=== PATIENT | female | born 1955 | race Caucasian/White ===

== ENCOUNTER 2018-11-29 12:11 | Outpatient (CLI) | payer OTHER ==
--- NOTE | 2018-11-29 13:12 | MMO ---
Bilateral MAMMO Bilat Screen [facility]. CLINICAL HISTORY: Patient is 63 years old and is seen for screening. The patient has a history of right Cyst Aspiration in 2001 - benign and bilateral Breast reduction in 2001. VIEWS: The views performed were: bilateral craniocaudal with tomosynthesis; bilateral mediolateral oblique with tomosynthesis; and right exaggerated craniocaudal. MAMMOGRAM FINDINGS: There are scattered fibroglandular densities. Benign calcifications are noted bilaterally. There are no suspicious masses, suspicious calcifications, or new areas of architectural distortion. IMPRESSION: THERE IS NO MAMMOGRAPHIC EVIDENCE OF MALIGNANCY. A ROUTINE FOLLOW-UP MAMMOGRAM IN 1 YEAR IS RECOMMENDED. THE RESULTS OF THIS EXAM WERE SENT TO THE PATIENT. ACR BI-RADS Category 2 - Benign finding MAMMOGRAPHY NOTE: 1. A negative mammogram report should not delay a biopsy if a dominant of clinically suspicious mass is present. 2. Approximately 10% to 15% of breast cancers are not detected by mammography. 3. Adenosis and dense breasts may obscure an underlying neoplasm. Reported by: Emiliano CARNEY Electonically Signed: [id number]
== END 2018-11-29 12:12 | disposition home or self-care (01) ==
LOC: BICMAMMO 12:11
PROVIDERS: ATTEND Obstetrics & Gynecology
DX: Z12.31 Encounter for screening mammogram for malignant neoplasm of breast (principal)
CPT/HCPCS: 77063; 77067

== ENCOUNTER 2018-12-10 06:59 | Day surgery (SDC) | payer OTHER ==
[2018-12-09 11:08] VITALS: BMI 19.3
--- NOTE | 2018-12-10 09:15 | HP ---
HISTORY OF PRESENT ILLNESS: This is a 63-year-old female, comes in for a colonoscopy for colon cancer. The patient has no specific symptoms. There is no family history of any colon cancer. ALLERGIES: QUINOLONE. SOCIAL HISTORY: She is a former smoker PHYSICAL EXAMINATION: Pulse is 72 IMPRESSION/PLAN: The patient is a 63-year-old female who comes in for a colonoscopy for colon cancer. Job ID: [id number]
[2018-12-10] MEDS ORDERED: Phenylephrine HCL 10 MG/ML VIAL ONE (10:01)
[2018-12-10] MEDS ORDERED: Sodium Chloride 0.9% 10 ML ONE (10:01)
--- NOTE | 2018-12-10 11:29 | OP ---
DATE OF PROCEDURE: 12/10/2018 PREOPERATIVE DIAGNOSIS: A 63-year-old female, undergoing colonoscopy for colon cancer screening. POSTOPERATIVE DIAGNOSES: 1. Sigmoid diverticular disease. 2. Hypertrophied anal papilla, small hemorrhoids. 3. Redundant colon. PROCEDURE PERFORMED: Video colonoscopy with biopsy. DESCRIPTION OF PROCEDURE: The patient was placed on her left lateral position and was given sedation by Anesthesia Department. A rectal exam was done before the scope was advanced to the rectum. No lesions felt on rectal exam. A [employer]ax video colonoscope was introduced into the rectum and advanced all the way into the cecum. In the appendicular opening, ileocecal valve, and cecum, no pathology seen. The scope advanced into terminal ileum. The ileal mucosa appeared normal. Withdrawal of scope from the cecum to ascending colon, hepatic flexure, no pathology seen. In the transverse colon, splenic flexure, descending colon, no pathology seen. The sigmoid colon shows scattered diverticula. Over the lower colon area . This is very nonspecific. Biopsies obtained from this area. Retroflexion of scope in the rectum showed hypertrophied anal papilla, small hemorrhoids. DISCHARGE PLANNING: This is a 63-year-old female, came for colonoscopy for colon cancer screening. The colonoscopy showed sigmoid diverticular disease and also mild inflammatory changes of the sigmoid colon. DISCHARGE RECOMMENDATIONS: 1. High-fiber diet. 2. The patient advised to call me if she develops abdominal pain, hematochezia. 3. In the absence of any of the above symptoms, she will come back to me in 2 weeks. 4. Repeat colonoscopy in 10 years as she has average risk for colon cancer. Job ID: [id number]
== END 2018-12-10 10:45 | disposition home or self-care (01) ==
LOC: SDC 06:59
PROVIDERS: ATTEND Internal Medicine Gastroenterology
PROC: 0DBN8ZX Excision of Sigmoid Colon, Via Natural or Artificial Opening Endoscopic, Diagnostic (ICD-10-PCS; principal; 2018-12-10)
DX: Z12.11 Encounter for screening for malignant neoplasm of colon (principal); K57.30 Diverticulosis of large intestine without perforation or abscess without bleeding; K64.9 Unspecified hemorrhoids; K62.89 Other specified diseases of anus and rectum; Z87.891 Personal history of nicotine dependence; Z88.1 Allergy status to other antibiotic agents
CPT/HCPCS: 88305; J2370

== ENCOUNTER 2019-12-29 09:48 | Outpatient (CLI) | payer OTHER ==
--- NOTE | 2019-12-29 10:32 | BD ---
EXAM: DEXA bone density examination HISTORY: 64-year-old postmenopausal female for screening COMPARISON: None FINDINGS: L1--bone mineral density 0.837 g/sq cm; T score -1.4 L2--bone mineral density 0.807 g/sq cm; T score -2.0 L3--bone mineral density 1.091 g/sq cm; T score 0.1 L4--bone mineral density 1.075 g/sq cm; T score 0.1 Total L1-L4--bone mineral density 0.956 g/sq cm; T score -0.8 Left femoral neck--bone mineral density0.627; T score -2.0 Total proximal left femur--bone mineral density 0.817; T score -1.0 WHO classification: Osteopenia 10 year fracture risk Major osteoporotic fracture: 19% Hip fracture: 1.4% IMPRESSION: Osteopenia with fracture risk as above.
--- NOTE | 2019-12-29 11:45 | MMO ---
Bilateral MAMMO Bilat Screen [facility]. CLINICAL HISTORY: Patient is 64 years old and is seen for screening. The patient has no family history of breast cancer. The patient has no personal history of cancer. The patient has a history of right Cyst Aspiration in 2000 - benign and bilateral Breast reduction in 2000. VIEWS: The views performed were: bilateral craniocaudal with tomosynthesis; bilateral mediolateral oblique with tomosynthesis; and right exaggerated craniocaudal. FILMS COMPARED: The present examination has been compared to a prior imaging study performed at [facility] on 11/29/2018. This study has been interpreted with the assistance of computer-aided detection. MAMMOGRAM FINDINGS: There are scattered fibroglandular densities. Finding 1: There are stable benign appearing calcifications seen in both breasts. Finding 2: There are stable benign appearing densities seen in both breasts. There are no suspicious masses, suspicious calcifications, or new areas of architectural distortion. IMPRESSION: THERE IS NO MAMMOGRAPHIC EVIDENCE OF MALIGNANCY. A ROUTINE FOLLOW-UP MAMMOGRAM IN 1 YEAR IS RECOMMENDED. THE RESULTS OF THIS EXAM WERE SENT TO THE PATIENT. ACR BI-RADS Category 2 - Benign finding MAMMOGRAPHY NOTE: 1. A negative mammogram report should not delay a biopsy if a dominant of clinically suspicious mass is present. 2. Approximately 10% to 15% of breast cancers are not detected by mammography. 3. Adenosis and dense breasts may obscure an underlying neoplasm. Reported by: MYRNA GONZALEZ MD Electonically Signed: [id number]
== END 2019-12-29 09:49 | disposition home or self-care (01) ==
LOC: BICMAMMO 09:48
PROVIDERS: ATTEND Family Medicine
DX: Z12.31 Encounter for screening mammogram for malignant neoplasm of breast (principal); M85.852 Other specified disorders of bone density and structure, left thigh
CPT/HCPCS: 77063; 77067; 77080

== ENCOUNTER 2025-04-16 14:19 | Inpatient (IN) | payer BC ==
[2025-04-16] MEDS ORDERED: Ondansetron PF 4 MG/2 ML Vial ONE (14:40)
[2025-04-16] MEDS ORDERED: Lidocaine 1% w/Epinephrine 1:100K 20 ML VIAL ONE (14:40)
[2025-04-16] MEDS ORDERED: Bacitracin 1 PK ONE (14:56)
[2025-04-16] MEDS ORDERED: Ketamine In 0.9 % NaCl 50 MG/5 ML SYRINGE ONE ×2 (14:56→16:38)
[2025-04-16 16:22] LABS: #Basophils 0.04 10x3/uL (0.0-0.2); #Eosinophils 0.12 10x3/uL (0.0-0.7); #Monocytes 1.03 10x3/uL (0.11-0.59); #Neutrophils 2.81 10x3/uL (1.40-6.50); %Basophils 0.4 % (0.0-1.0); %Eosinophils 1.3 % (0.0-10.0); %Lymphocytes 54.9 % (21.0-51.0); %Monocytes 11.6 % (0.0-10.0); %Neutrophils 31.6 % (42.0-75.0); Hematocrit 39.9 % (36.0-47.0); Hemoglobin 12.6 g/dL (12.0-16.0); Mean Corpuscular Hemoglobin 28.6 pg (27.0-31.0); Mean Corpuscular Volume 90.7 fL (78.0-98.0); Platelet Count 262 10x3/uL (130-400); Red Blood Cell (RBC) Count 4.40 mill/uL (4.20-5.40); White Blood Cell (WBC) Count 8.91 10x3/uL (4.8-10.8)
[2025-04-16 16:38] LABS: ALT (SGPT) 21 U/L (Less than 34); AST (SGOT) 29 U/L (11-34); Albumin 4.2 g/dL (3.1-4.5); Alkaline Phosphatase 42 U/L (40-110); Anion Gap 15 mmol/L (10-20); BUN (Urea Nitrogen) 23 mg/dL (9.8-20.1); Bilirubin, Total 0.4 mg/dL (0.3-1.2); Calc. Creatinine Clearance 0 mL/min (70-130); Calcium 9.4 mg/dL (7.8-10.44); Carbon Dioxide 23 mmol/L (23-31); Chloride 106 mmol/L (98-107); Globulin 2.8 g/dL (2.4-3.5); Glucose 101 mg/dL (80-115); Potassium 4.0 mmol/L (3.5-5.1); Sodium 140 mmol/L (136-145)
[2025-04-16] MEDS ORDERED: Dextrose 50% Abboject 50 ML SYRINGE SLOW IVP PRN (19:37)
[2025-04-16] MEDS ORDERED: hydrALAZINE 20 MG/ML VIAL SLOW IVP PRN (19:37)
[2025-04-16] MEDS ORDERED: Ondansetron PF 4 MG/2 ML Vial IVP PRN (19:37)
[2025-04-16] MEDS ORDERED: Methocarbamol 500 MG TAB PO PRN (19:37)
[2025-04-16] MEDS ORDERED: Glucagon 1 MG/ML KIT IM PRN (19:37)
[2025-04-16 22:31] VITALS: BMI 26.9
[2025-04-17] MEDS: Senokot S 8.6-50 MG TAB PO SCH (00:27)
[2025-04-17 07:32] LABS: #Basophils Less than 0.03 10x3/uL (0.0-0.2); #Eosinophils 0.06 10x3/uL (0.0-0.7); #Monocytes 1.10 10x3/uL (0.11-0.59); #Neutrophils 4.64 10x3/uL (1.40-6.50); %Basophils 0.3 % (0.0-1.0); %Eosinophils 0.8 % (0.0-10.0); %Lymphocytes 25.8 % (21.0-51.0); %Monocytes 14.0 % (0.0-10.0); %Neutrophils 59.0 % (42.0-75.0); Hematocrit 36.7 % (36.0-47.0); Hemoglobin 11.6 g/dL (12.0-16.0); Mean Corpuscular Hemoglobin 28.9 pg (27.0-31.0); Mean Corpuscular Volume 91.3 fL (78.0-98.0); Platelet Count 221 10x3/uL (130-400); Red Blood Cell (RBC) Count 4.02 mill/uL (4.20-5.40); White Blood Cell (WBC) Count 7.86 10x3/uL (4.8-10.8)
[2025-04-17 07:46] LABS: Anion Gap 6 mmol/L (10-20); BUN (Urea Nitrogen) 20 mg/dL (9.8-20.1); Calc. Creatinine Clearance 105 mL/min (70-130); Calcium 8.0 mg/dL (7.8-10.44); Carbon Dioxide 22 mmol/L (23-31); Chloride 109 mmol/L (98-107); Glucose 95 mg/dL (80-115); Potassium 3.9 mmol/L (3.5-5.1); Sodium 133 mmol/L (136-145)
[2025-04-17] MEDS: Acetaminophen 325 MG TAB PO PRN (09:00)
[2025-04-17] MEDS ORDERED: fentaNYL PF 100 MCG/2 ML SYRINGE ONE (10:05)
[2025-04-17] MEDS ORDERED: Ondansetron PF 4 MG/2 ML Vial ONE (10:05)
[2025-04-17] MEDS ORDERED: Lidocaine 1% PF 5 ML VIAL ONE (10:05)
[2025-04-17] MEDS: PNEUMOC 20-VAL CONJ-DIP CRM/PF 0.5 ML SYRINGE IM ONE (10:51)
[2025-04-17] MEDS ORDERED: Ropivacaine 0.5% HCl/PF (150 MG/30 ML VIAL) ONE (11:17)
[2025-04-17] MEDS ORDERED: Lidocaine 2% 6 ML (Jelly) SYR ONE (11:36)
[2025-04-17] MEDS ORDERED: PROPOFOL 200 MG/20 ML VIAL ONE (12:00)
[2025-04-17] MEDS ORDERED: Rocuronium Bromide 10 MG/ML (10ML VIAL) ONE (12:00)
[2025-04-17] MEDS ORDERED: PHENYLEPHRINE-NS 100 MCG/ML 10 ML SYRINGE ONE (12:00)
[2025-04-17] MEDS ORDERED: SUGAMMADEX SODIUM 200 MG/2 ML VIAL ONE (12:13)
[2025-04-17 18:46] VITALS: TEMP 98.1
[2025-04-17 19:54] VITALS: BP 103/69
[2025-04-18] MEDS ORDERED: PNEUMOC 20-VAL CONJ-DIP CRM/PF 0.5 ML SYRINGE IM ONE (09:00)
== END 2025-04-17 19:55 | disposition home or self-care (01) | DRG 511 ==
LOC: ERS 14:19 → SURG B 19:47
PROVIDERS: ADMIT Colon & Rectal Surgery; ATTEND Colon & Rectal Surgery
PROC: 0PSJ04Z Reposition Left Radius with Internal Fixation Device, Open Approach (ICD-10-PCS; principal; 2025-04-17)
DX: S52.502A Unspecified fracture of the lower end of left radius, initial encounter for closed fracture (principal); S02.122A Fracture of orbital roof, left side, initial encounter for closed fracture; S02.92XA Unspecified fracture of facial bones, initial encounter for closed fracture; S62.102A Fracture of unspecified carpal bone, left wrist, initial encounter for closed fracture; W10.9XXA Fall (on) (from) unspecified stairs and steps, initial encounter; Z88.8 Allergy status to other drugs, medicaments and biological substances
CPT/HCPCS: 12013; 25605; 36415; 70450; 70486; 72125; 80048; 80053; 85025; 90471; 90715; 93005; 96365; 96375; 99152; C1713; G0390; J1100; J2272; J2405; J2704; J2795; J3010; J3490; J7120